=== PATIENT | female | born 1945 | race Caucasian/White ===

== ENCOUNTER 2016-11-24 10:37 | Outpatient (CLI) | payer MEDICARE | END 2016-11-24 10:38 | disposition home or self-care (01) | DX: Z12.2 Encounter for screening for malignant neoplasm of respiratory organs (principal); R91.8 Other nonspecific abnormal finding of lung field; F17.210 Nicotine dependence, cigarettes, uncomplicated ==

== ENCOUNTER 2017-01-09 14:36 | Outpatient (CLI) | payer MEDICARE | END 2017-01-09 14:37 | disposition home or self-care (01) | DX: Z12.31 Encounter for screening mammogram for malignant neoplasm of breast (principal); Z80.3 Family history of malignant neoplasm of breast ==

== ENCOUNTER 2017-10-03 11:59 | Outpatient (CLI) | payer OTHER, MEDICARE ==
--- NOTE | 2017-10-03 17:51 | XRAY Report ---
THREE VIEW CERVICAL SPINE: 10/03/2017 CLINICAL INDICATION: Somatic dysfunction. AP, lateral, odontoid views of the cervical spine demonstrate moderate degenerative disk and facet di sease. Disk space narrowing is worst at C6-7. There is no evidence of fracture or subluxation. The prevertebral soft tissues are unremarkable. IMPRESSION: MODERATE DEGENERATIVE CHANGES. JOB #: [id number] EXT JOB #:[id number]
== END 2017-10-03 12:00 | disposition home or self-care (01) ==
LOC: DI 11:59
PROVIDERS: ATTEND Family Medicine
DX: M50.30 Other cervical disc degeneration, unspecified cervical region (principal); M47.892 Other spondylosis, cervical region
CPT/HCPCS: 72040

== ENCOUNTER 2018-01-15 08:00 | Outpatient (CLI) | payer MEDICARE ==
[2018-01-15 12:50] LABS: ALBUMIN 4.4 g/dL (3.2-5.5); ALBUMIN/GLOBULIN RATIO 1.3 (1.0-2.2); ALKALINE PHOSPHATASE 51 IU/L (42-121); ALT ALANINE AMINOTRANSFERASE 27 IU/L (10-60); AST ASPARTATE AMINOTRANSFERASE 24 IU/L (10-42); BILIRUBIN,TOTAL 0.4 mg/dL (0.2-1.0); BUN - BLOOD UREA NITROGEN 18 mg/dL (6-20); CALCIUM 10.3 mg/dL (8.5-10.3); CARBON DIOXIDE - CO2 24 mmol/L (21-32); CHLORIDE 103 mmol/L (101-111); CHOL/HDL RATIO 2.2 (<4.4); CHOLESTEROL 129 mg/dL; CREATININE 0.7 mg/dL (0.4-1.0); GFR - MDRD 82 (>89); GLUCOSE 77 mg/dL (70-100); HDL CHOLESTEROL 59 mg/dL; LDL CHOLESTEROL,CALCULATED 37 mg/dL; LDL/HDL RATIO 0.6 (<4.4); SODIUM 136 mmol/L (135-145); TOTAL PROTEIN 7.8 g/dL (6.7-8.2); VLDL CHOLESTEROL 33 mg/dL
[2018-01-15 13:06] LABS: CREATININE,URINE 124.9 mg/dL; MICROALBUM/CREATININE RATIO,UR 20.8 ug/mg (<30.0); MICROALBUMIN,URINE 2.6 mg/dL (0-300.0)
== END 2018-01-15 08:01 | disposition home or self-care (01) ==
LOC: LAB.WCP 08:00
PROVIDERS: ATTEND Internal Medicine Endocrinology, Diabetes & Metabolism
DX: E11.69 Type 2 diabetes mellitus with other specified complication (principal); Z79.4 Long term (current) use of insulin
CPT/HCPCS: 36415; 80053; 80061; 82043; 82570; 83721

== ENCOUNTER 2019-03-26 08:00 | Outpatient (CLI) | payer MEDICARE ==
[2019-03-26 13:54] LABS: CREATININE,URINE 161.7 mg/dL; MICROALBUM/CREATININE RATIO,UR 42.7 ug/mg (<30.0); MICROALBUMIN,URINE 6.9 mg/dL (0-300.0)
[2019-03-26 13:55] LABS: ALBUMIN 4.2 g/dL (3.2-5.5); ALBUMIN/GLOBULIN RATIO 1.3 (1.0-2.2); ALKALINE PHOSPHATASE 52 IU/L (42-121); ALT ALANINE AMINOTRANSFERASE 31 IU/L (10-60); AST ASPARTATE AMINOTRANSFERASE 24 IU/L (10-42); BILIRUBIN,TOTAL 0.6 mg/dL (0.2-1.0); BUN - BLOOD UREA NITROGEN 20 mg/dL (6-20); CHOLESTEROL 125 mg/dL; CREATININE 0.7 mg/dL (0.4-1.0); GFR - MDRD 82 (>89); HDL CHOLESTEROL 62 mg/dL; LDL CHOLESTEROL,CALCULATED 44 mg/dL; LDL/HDL RATIO 0.7 (<4.4); TOTAL PROTEIN 7.4 g/dL (6.7-8.2); VLDL CHOLESTEROL 19 mg/dL
[2019-03-26 14:09] LABS: CALCIUM 10.4 mg/dL (8.5-10.3); CARBON DIOXIDE - CO2 22 mmol/L (21-32); CHLORIDE 104 mmol/L (101-111); GLUCOSE 125 mg/dL (70-100); SODIUM 138 mmol/L (135-145)
== END 2019-03-26 08:01 | disposition home or self-care (01) ==
LOC: LAB.WCP 08:00
PROVIDERS: ATTEND Internal Medicine Endocrinology, Diabetes & Metabolism
DX: E11.65 Type 2 diabetes mellitus with hyperglycemia (principal); Z79.4 Long term (current) use of insulin
CPT/HCPCS: 36415; 80053; 80061; 82043; 82570; 83721

== ENCOUNTER 2019-09-17 11:38 | Outpatient (CLI) | payer MEDICARE ==
[2019-09-17 12:25] LABS: CREATININE 0.7 mg/dL (0.4-1.0)
--- NOTE | 2019-09-18 12:20 | CT Report ---
Reason: PULMONARY NODULE Procedure Date: 09/17/2019 Accession Number: [id number] / [id number] Procedure: CT - CHEST WO CPT Code: Final Report FULL RESULT: EXAM: CT CHEST EXAM DATE: 09/17/2019 03:17 PM. CLINICAL HISTORY: PULMONARY NODULE. COMPARISONS: CHEST SCREEN LOW DOSE W/O 11/24/2016 11:05 AM. TECHNIQUE: Routine helical CT imaging was performed through the chest. IV contrast: None. Reconstructions: Coronal and sagittal. In accordance with CT protocol optimization, one or more of the following dose reduction techniques were utilized for this exam: automated exposure control, adjustment of mA and/or KV based on patient size, or use of iterative reconstructive technique. FINDINGS: Lungs/Pleura: Juxtapleural pulmonary nodule in the right upper lobe again demonstrated measuring 3 mm, previously 3 mm (series 6, image 54). There is a right middle lobe pulmonary nodule measuring 6 mm, previously 6 mm (series 6, image 67). There is a juxtapleural pulmonary nodule in the right lower lobe measuring 4 mm, previously 5 mm (series 6, image 64). No new pulmonary nodules or masses. Atelectatic changes/scarring in the left lung base anteriorly redemonstrated and similar. Mediastinum: Normal. No adenopathy or masses. The heart and great vessels are normal. Bones: Unremarkable. Visualized Abdomen: Multiple tiny calcified stones in the gallbladder. Other: None. IMPRESSION: 1. Multiple pulmonary nodules in the right lung are again demonstrated and similar in size, number and appearance to the prior examination. 2. No new pulmonary nodules or masses. 3. No lymphadenopathy. RADIA
== END 2019-09-17 11:39 | disposition home or self-care (01) ==
LOC: LAB 11:38 → DI 11:39
PROVIDERS: ATTEND Family Medicine
DX: R91.8 Other nonspecific abnormal finding of lung field (principal)
CPT/HCPCS: 36415; 71250; 82565

== ENCOUNTER 2019-09-17 12:05 | Outpatient (CLI) | payer MEDICARE ==
--- NOTE | 2019-09-18 09:33 | Mammography Report ---
Reason: SCREENING MAMMO Procedure Date: 09/17/2019 Accession Number: [id number] / [id number] Procedure: LISA - Screening Mammo w/John CPT Code: Final Report FULL RESULT: EXAM: Screening Mammo w/John DATE: 09/17/2019 12:59 PM CLINICAL HISTORY: Routine screening. No reported personal history of breast cancer. Family history breast cancer in sister age 45. TECHNIQUE: (B) - Bilateral CC and MLO views were obtained. COMPARISON: 01/09/2017 through 07/29/2014. PARENCHYMAL PATTERN: (A) - The breasts demonstrate scattered fibroglandular densities bilaterally. FINDINGS: Right breast: There are no suspicious masses, calcifications, or areas of distortion. Left breast: There is a 9 mm isodense mass with irregular margins in the posterior 2:30 o'clock breast 10 cm from the nipple seen best on 3-D imaging. No suspicious calcifications. IMPRESSION: Right breast: Negative. BI-RADS Category 1. Recommend annual screening mammography. Left breast: 9 mm mass with irregular margins posterior to 3:00 breast. Incomplete examination. BI-RADS category 0. Recommend additional views and ultrasound. RECOMMENDATION: (ADDMU) - Additional views using both Mammography and Ultrasound recommended. BI-RADS CATEGORY: (0) - Incomplete Examination - need additional evaluation. STANDARD QUALIFYING STATEMENTS: 1. This examination was not reviewed with the aid of Computer-Aided Detection (CAD). 2. A negative or benign imaging report should not preclude biopsy if clinically suspicious findings are present. 3. Dense breasts may obscure an underlying neoplasm. 4. This examination was reviewed with the aid of 3D breast imaging (tomosynthesis).
== END 2019-09-17 12:06 | disposition home or self-care (01) ==
LOC: DI 12:05
DX: Z12.31 Encounter for screening mammogram for malignant neoplasm of breast (principal); R92.8 Other abnormal and inconclusive findings on diagnostic imaging of breast; Z80.3 Family history of malignant neoplasm of breast
CPT/HCPCS: 77063; 77067

== ENCOUNTER 2019-10-20 08:57 | Outpatient (CLI) | payer MEDICARE ==
--- NOTE | 2019-10-20 12:14 | Mammography Report ---
Reason: ABN MAMMO - LT SPEC VIEWS Procedure Date: 10/20/2019 Accession Number: [id number] / [id number] Procedure: LISA - Diag Special Views Dig LT CPT Code: Final Report FULL RESULT: EXAM: Diag Special Views Dig LT, Breast Unilateral Limited DATE: 10/20/2019 10:41 AM CLINICAL HISTORY: Follow-up abnormal mammogram 09/17/2019 COMPARISON: 09/17/2019 MAMMOGRAM: TECHNIQUE: (L) - Left. CC and MLO views were obtained. PARENCHYMAL PATTERN: (A) - The breasts demonstrate scattered fibroglandular densities bilaterally. FINDINGS: The 9 mm isodense mass with irregular margins in the posterior 2:30 left breast 10 cm from the nipple partially attenuates on additional views. LEFT BREAST ULTRASOUND: TECHNIQUE: Real time scanning by the surgical first assistant with me present with saved static images reviewed. FINDINGS: In the left breast 2:00 position 12 cm from the nipple there is a 6 x 6 x 4 mm well-circumscribed hypoechoic nodule with an accentuated back wall. Internal vascularity suggests a hilum and this corresponds to a lymph node seen by mammography. No ultrasound correlate is identified to explain the isodense nodular density 10 cm from the nipple. IMPRESSION: Probably Benign. BI-RADS category 3. Left breast RECOMMENDATION: (6MOS) - Recommend 6 month follow-up exam. Left breast mammogram. BI-RADS CATEGORY: (3) - Probably Benign. STANDARD QUALIFYING STATEMENTS: 1. This examination was not reviewed with the aid of Computer-Aided Detection (CAD). 2. A negative or benign imaging report should not preclude biopsy if clinically suspicious findings are present. 3. Dense breasts may obscure an underlying neoplasm. 4. This examination was reviewed with the aid of 3D breast imaging (tomosynthesis).
== END 2019-10-20 08:58 | disposition home or self-care (01) ==
LOC: DI 08:57
PROVIDERS: ATTEND Family Medicine
DX: R92.8 Other abnormal and inconclusive findings on diagnostic imaging of breast (principal)
CPT/HCPCS: 76642

== ENCOUNTER 2020-09-01 07:45 | Outpatient (CLI) | payer MEDICARE ==
[2020-09-01 13:08] LABS: CREATININE,URINE 320.3 mg/dL; MICROALBUM/CREATININE RATIO,UR 47.8 ug/mg (<30.0); MICROALBUMIN,URINE 15.3 mg/dL (0-300.0)
[2020-09-01 14:04] LABS: ALBUMIN 4.2 g/dL (3.2-5.5); ALBUMIN/GLOBULIN RATIO 1.6 (1.0-2.2); ALKALINE PHOSPHATASE 49 IU/L (42-121); ALT ALANINE AMINOTRANSFERASE 30 IU/L (10-60); AST ASPARTATE AMINOTRANSFERASE 25 IU/L (10-42); BILIRUBIN,TOTAL 0.5 mg/dL (0.2-1.0); BUN - BLOOD UREA NITROGEN 14 mg/dL (6-20); CALCIUM 9.8 mg/dL (8.5-10.3); CARBON DIOXIDE - CO2 23 mmol/L (21-32); CHLORIDE 107 mmol/L (101-111); CHOL/HDL RATIO 2.4 (<4.4); CHOLESTEROL 132 mg/dL; CREATININE 0.8 mg/dL (0.4-1.0); GLUCOSE 135 mg/dL (70-100); HDL CHOLESTEROL 55 mg/dL; LDL CHOLESTEROL,CALCULATED 52 mg/dL; LDL/HDL RATIO 0.9 (<4.4); SODIUM 138 mmol/L (135-145); TOTAL PROTEIN 6.9 g/dL (6.7-8.2); VLDL CHOLESTEROL 25 mg/dL
== END 2020-09-01 23:59 | disposition home or self-care (01) ==
LOC: LAB.WCP 07:45
PROVIDERS: ATTEND Internal Medicine Endocrinology, Diabetes & Metabolism
DX: E11.65 Type 2 diabetes mellitus with hyperglycemia (principal); E78.2 Mixed hyperlipidemia; Z79.4 Long term (current) use of insulin
CPT/HCPCS: 36415; 80053; 80061; 82043; 82570; 83721

== ENCOUNTER 2022-03-05 07:16 | Outpatient (CLI) | payer MEDICARE ==
[2022-03-05 13:00] LABS: ALBUMIN 4.2 g/dL (3.2-5.5); ALBUMIN/GLOBULIN RATIO 1.4 (1.0-2.2); ALKALINE PHOSPHATASE 48 IU/L (42-121); ALT ALANINE AMINOTRANSFERASE 35 IU/L (10-60); AST ASPARTATE AMINOTRANSFERASE 24 IU/L (10-42); BILIRUBIN,TOTAL 0.6 mg/dL (0.2-1.0); BUN - BLOOD UREA NITROGEN 20 mg/dL (6-20); CALCIUM 9.9 mg/dL (8.5-10.3); CARBON DIOXIDE - CO2 23 mmol/L (21-32); CHLORIDE 103 mmol/L (101-111); CHOL/HDL RATIO 2.5 (<4.4); CHOLESTEROL 156 mg/dL; CREATININE 0.9 mg/dL (0.4-1.0); GFR - MDRD 61 (>89); GLUCOSE 168 mg/dL (70-100); HDL CHOLESTEROL 62 mg/dL; LDL CHOLESTEROL,CALCULATED 65 mg/dL; POTASSIUM 4.5 mmol/L (3.5-5.0); SODIUM 136 mmol/L (135-145); TOTAL PROTEIN 7.2 g/dL (6.7-8.2); TRIGLYCERIDES 144 mg/dL; VLDL CHOLESTEROL 29 mg/dL
[2022-03-05 13:57] LABS: ESTIMATED AVERAGE GLUCOSE 206 mg/dL (70-100); HEMOGLOBIN A1c% 8.8 % (4.27-6.07)
== END 2022-03-05 07:17 | disposition home or self-care (01) ==
LOC: LAB.N 07:16
PROVIDERS: ATTEND Internal Medicine Endocrinology, Diabetes & Metabolism
DX: E11.65 Type 2 diabetes mellitus with hyperglycemia (principal); Z79.4 Long term (current) use of insulin; I10 Essential (primary) hypertension; E78.2 Mixed hyperlipidemia
CPT/HCPCS: 36415; 80053; 80061; 83036; 83721

== ENCOUNTER 2022-05-22 12:11 | Outpatient (CLI) | payer MEDICARE ==
--- NOTE | 2022-05-23 17:36 | Mammography Report ---
BILATERAL DIGITAL DIAGNOSTIC MAMMOGRAM 3D/2D WITH LATEROMEDIAL: 05/22/2022 CLINICAL: Patient returns for a 6 month follow up of the left breast, due for bilateral. Comparison is made to exams dated: 10/20/2019 mammogram, 09/17/2019 mammogram, 01/09/2017 mammogram, a nd 01/30/2016 mammogram - . There are scattered fibroglandular elements i n both breasts. There is a focal asymmetry in the left breast at 2 o'clock posterior depth. This is not significantl y changed. No other significant masses, calcifications, or other findings are seen in either breast. IMPRESSION: INCOMPLETE: NEEDS ADDITIONAL IMAGING EVALUATION The focal asymmetry in the left breast is indeterminate. A targeted ultrasound is recommended and will immediately follow. Based on the Tyrer Cuzick model (a risk assessment model) the patients lifetime risk is 3.2% and her 10 year risk is 0.0%. According to the ACR, ACS, and NCCN guidelines, an annual breast MRI exam daja g with mammogram is recommended if the patients lifetime risk is 20% or greater. This exam was interpreted at Station ID: [id number]. NOTE: For mammograms, a report in lay terms will be sent to the patient. Approximately 15% of breast malignancies will not be visualized mammographically. In the management of a palpable breast mass, a negative mammogram must not discourage biopsy of a clinically suspicious lesion. Electronically Signed By: Norbert Aguirre M.D. slc/:05/22/2022 13:04:48 ACR BI-RADS Category 0: Incomplete 3340F PARENCHYMAL PATTERN: (A) - The breast(s) demonstrate(s) scattered fibroglandular densities. BI-RADS CATEGORY: (0) - 0 Ultrasound [id number] Immediate follow-up LATERALITY: (B)
--- NOTE | 2022-05-23 17:36 | Ultrasound Report ---
LIMITED ULTRASOUND OF LEFT BREAST AND AXILLA: 05/22/2022 CLINICAL: Patient returns today to evaluate an asymmetry in the left breast. Comparison is made to exams dated: 05/22/2022 mammogram, 10/20/2019 mammogram, 09/17/2019 mammogram, and 01/09/2017 mammogram - [facility]. Color flow and real-time ultrasound of the left breast 12-3 o'clock, and axilla regions were performe d. Roman scale images of the real-time examination were reviewed. There is a 0.9 cm x 0.7 cm x 0.7 cm oval mass in the left breast at 3 o'clock posterior depth 7 cm fr om the nipple. This oval mass is hypoechoic with a hyperechoic rim. This correlates with mammograph y findings. Color flow imaging demonstrates that there is vascularity present. There also is an enlarged lymph node with eccentric cortical thickening in the left axilla. This enla rged lymph node displays fatty hilum. Color flow imaging demonstrates that there is vascularity pres ent. Cortex measures 0.4 cm. IMPRESSION: SUSPICIOUS OF MALIGNANCY The 0.9 cm x 0.7 cm x 0.7 cm oval mass in the left breast at 3 o'clock posterior depth is at a modera te suspicion for malignancy. -An ultrasound guided biopsy is recommended. The enlarged lymph node with eccentric cortical thickening in the left axilla is at a low suspicion f or malignancy. -An ultrasound guided biopsy is recommended. -If this node looks less prominent or the cortex appears normal on day of the biopsy, biopsy could be canceled. Exam findings were discussed with the patient by Dr. Coles. This exam was interpreted at Station ID: [id number]. Electronically Signed By: Norbert Aguirre M.D. slc/:05/22/2022 14:36:38 Ultrasound BI-RADS: 4b Moderate suspicion of malignancy BI-RADS CATEGORY: (4b) - Mod Susp Biopsy [id number] Immediate follow-up LATERALITY: (L)
== END 2022-05-22 12:12 | disposition home or self-care (01) ==
LOC: DI 12:11
PROVIDERS: ATTEND Family Medicine
DX: N63.20 Unspecified lump in the left breast, unspecified quadrant (principal)

== ENCOUNTER 2023-03-29 08:54 | Outpatient (CLI) | payer MEDICARE ==
[2023-03-29 14:19] LABS: ALBUMIN 4.1 g/dL (3.2-5.5); ALBUMIN/GLOBULIN RATIO 1.1 (1.0-2.2); BILIRUBIN,TOTAL 0.5 mg/dL (0.2-1.0); CALCIUM 10.1 mg/dL (8.5-10.3); CREATININE 0.7 mg/dL (0.4-1.0); POTASSIUM 4.1 mmol/L (3.5-5.0); TOTAL PROTEIN 7.7 g/dL (6.7-8.2)
[2023-03-29 14:35] LABS: CHOL/HDL RATIO 2.3 (<4.4); CHOLESTEROL 147 mg/dL; HDL CHOLESTEROL 63 mg/dL; LDL CHOLESTEROL,CALCULATED 57 mg/dL; LDL/HDL RATIO 0.9 (<4.4); TRIGLYCERIDES 137 mg/dL; VLDL CHOLESTEROL 27 mg/dL
== END 2023-03-29 08:55 | disposition home or self-care (01) ==
LOC: LAB.N 08:54
PROVIDERS: ATTEND Internal Medicine Endocrinology, Diabetes & Metabolism
DX: E11.65 Type 2 diabetes mellitus with hyperglycemia (principal); Z79.4 Long term (current) use of insulin
CPT/HCPCS: 36415; 80053; 80061; 82043; 82570; 83721

== ENCOUNTER 2023-04-02 08:00 | Outpatient (CLI) | payer MEDICARE ==
[2023-04-02 18:28] LABS: CREATININE,URINE 101.3 mg/dL; MICROALBUM/CREATININE RATIO,UR 19.7 ug/mg (<30.0)
== END 2023-04-02 23:59 | disposition home or self-care (01) ==
LOC: LAB.N 08:00
PROVIDERS: ATTEND Internal Medicine Endocrinology, Diabetes & Metabolism
DX: E11.65 Type 2 diabetes mellitus with hyperglycemia (principal); Z79.4 Long term (current) use of insulin
CPT/HCPCS: 82043; 82570

== ENCOUNTER 2023-06-07 14:22 | Outpatient (CLI) | payer MEDICARE ==
[2023-06-07 18:16] LABS: EOSINOPHILS % (AUTO) 9.4 %; HCT - HEMATOCRIT 45.3 % (37.0-47.0); HGB - HEMOGLOBIN 14.3 g/dL (12.0-16.0); MEAN CORPUSCULAR HEMOGLOBIN 28.3 pg (27.0-31.0); MEAN CORPUSCULAR HGB CONC 31.6 g/dL (32.0-36.0); MEAN CORPUSCULAR VOLUME 89.7 fL (81.0-99.0); MEAN PLATELET VOLUME 10.7 fL (7.9-10.8); MONOCYTES % (AUTO) 7.2 %; PLT - PLATELET COUNT 312 10^3/uL (130-450); RED BLOOD COUNT 5.05 10^6/uL (4.20-5.40); RED CELL DISTRIBUTION WIDTH 14.6 % (12.0-15.0); WHITE BLOOD COUNT 11.9 x10^3/uL (4.8-10.8)
[2023-06-07 18:23] LABS: ABNORMAL LYMPHS % (MANUAL) 0 %; BAND NEUTROPHILS % (MANUAL) 0 %
[2023-06-07 18:26] LABS: ALBUMIN 4.2 g/dL (3.2-5.5); ALBUMIN/GLOBULIN RATIO 1.4 (1.0-2.2); BILIRUBIN,TOTAL 0.4 mg/dL (0.2-1.0); CALCIUM 10.4 mg/dL (8.5-10.3); CREATININE 0.8 mg/dL (0.6-1.3); POTASSIUM 3.9 mmol/L (3.5-4.5); TOTAL PROTEIN 7.2 g/dL (6.4-8.9)
[2023-06-07 18:51] LABS: BASOPHILS # (MANUAL) 0.1 10^3/uL (0-0.1); BASOPHILS % (MANUAL) 1 %; DIFFERENTIAL COMMENT MANUAL DIFFERENTIAL; EOSINOPHILS # (MANUAL) 0.7 10^3/uL (0-0.7); LYMPHOCYTES # (MANUAL) 3.8 10^3/uL (1.5-3.5); LYMPHOCYTES % (MANUAL) 19 %; MONOCYTES # (MANUAL) 0.6 10^3/uL (0.0-1.0); NEUTROPHILS # (MANUAL) 6.7 10^3/uL (1.5-6.6); PLATELET ESTIMATE, MANUAL NORMAL (130-450,000) (NORMAL); PLATELET MORPHOLOGY NORMAL APPEARANCE (NORMAL); RBC MORPHOLOGY (MULTIPLE) NORMAL APPEARANCE (NORMAL); REACTIVE LYMPHS % (MANUAL) 13 %
== END 2023-06-07 14:23 | disposition home or self-care (01) ==
LOC: LAB.N 14:22
PROVIDERS: ATTEND Internal Medicine Medical Oncology
DX: C50.912 Malignant neoplasm of unspecified site of left female breast (principal)
CPT/HCPCS: 36415; 80053; 85025

== ENCOUNTER 2024-01-17 08:08 | Outpatient (CLI) | payer MEDICARE ==
[2024-01-17 13:34] LABS: ALBUMIN 4.2 g/dL (3.2-5.5); ALBUMIN/GLOBULIN RATIO 1.4 (1.0-2.2); ALKALINE PHOSPHATASE 66 IU/L (42-121); ALT ALANINE AMINOTRANSFERASE 23 IU/L (10-60); AST ASPARTATE AMINOTRANSFERASE 23 IU/L (10-42); BILIRUBIN,TOTAL 0.5 mg/dL (0.2-1.0); BUN - BLOOD UREA NITROGEN 12 mg/dL (6-20); CALCIUM 10.2 mg/dL (8.5-10.3); CARBON DIOXIDE - CO2 26 mmol/L (21-32); CHLORIDE 105 mmol/L (101-111); CHOL/HDL RATIO 2.3 (<4.4); CHOLESTEROL 138 mg/dL; CREATININE 0.7 mg/dL (0.6-1.3); GFR - MDRD 81 (>89); GLUCOSE 95 mg/dL (74-104); HDL CHOLESTEROL 59 mg/dL; LDL CHOLESTEROL,CALCULATED 54 mg/dL; LDL/HDL RATIO 0.9 (<4.4); POTASSIUM 3.9 mmol/L (3.5-4.5); SODIUM 140 mmol/L (135-145); TOTAL PROTEIN 7.2 g/dL (6.4-8.9); TRIGLYCERIDES 124 mg/dL (48-352); VLDL CHOLESTEROL 25 mg/dL
[2024-01-17 13:51] LABS: CREATININE,URINE 101.5 mg/dL; MICROALBUM/CREATININE RATIO,UR 46.3 ug/mg (<30.0); MICROALBUMIN,URINE 4.7 mg/dL
[2024-01-17 14:19] LABS: ESTIMATED AVERAGE GLUCOSE 180 mg/dL (70-100); HEMOGLOBIN A1c% 7.9 % (4.27-6.07)
== END 2024-01-17 08:09 | disposition home or self-care (01) ==
LOC: LAB.N 08:08
PROVIDERS: ATTEND Internal Medicine Endocrinology, Diabetes & Metabolism
DX: E78.2 Mixed hyperlipidemia (principal); E11.65 Type 2 diabetes mellitus with hyperglycemia; Z79.4 Long term (current) use of insulin
CPT/HCPCS: 36415; 80053; 80061; 82043; 82570; 83036; 83721